=== PATIENT | male | born 1970 | race Caucasian/White ===

== ENCOUNTER → 2025-04-04 09:51 | Outpatient (REF) | payer OTHER, SELFPAY | LOC: RAD 09:51 | PROVIDERS: ATTENDING PHYSICIAN Chiropractor; FAMILY PHYSICIAN Nurse Practitioner Family | DX: M54.50 Low back pain, unspecified (principal); M25.511 Pain in right shoulder | CPT/HCPCS: 72050; 72110; 73030; 73502 ==